=== PATIENT | female | born 1985 | race African-American/Black ===

== ENCOUNTER 2016-10-16 19:41 | Emergency (ER) | payer OTHER ==
[~2016-10-16] VITALS: Ht 162.6 cm; Wt 63.4 kg
[2016-10-16 20:43] LABS: HEMATOCRIT 36.2 % (36.0-46.0); MCH 32.3 PG (29.0-34.0); MCHC 33.1 G/DL (30.0-36.0); MCV 97.3 FL (83-99); RBC DIS.WIDTH-CV 14.7 % (11.8-14.6); RBC DIS.WIDTH-SD 52.4 % (39-53); RED BLOOD COUNT 3.72 M/uL (3.80-5.20); WHITE BLOOD COUNT 12.1 K/uL (4.1-10.2)
[2016-10-16 20:46] LABS: ADD MIUA? YES; BILIRUBIN NEGATIVE; BLOOD NEGATIVE; COLOR YELLOW ((YELLOW)); GLUCOSE (STRIP) NEGATIVE; KETONES 20; LEUKOCYTES NEGATIVE; NITRITE NEGATIVE; PROTEIN (STRIP) NEGATIVE; SPECIFIC GRAVITY 1.016 (1.000-1.030); UROBILINOGEN 0.2 MG/DL (0.2-1.0)
[2016-10-16 20:56] LABS: CHLORIDE 107 mEq/L (99-109); POTASSIUM 3.9 mEq/L (3.7-5.4); SODIUM 135 mEq/L (136-147)
[2016-10-16 20:58] LABS: BACTERIA RARE /HPF; EPITHELIAL CELLS 2+ /HPF; MUCUS TRACE /LPF; RED BLOOD CELLS 0-5 /HPF (0-5); UCUL ADDED? NO; WHITE BLOOD CELLS 0-5 /HPF (0-5)
[2016-10-16 20:59] LABS: GLUCOSE 81 mg/dL (70-99)
[2016-10-16 21:00] LABS: ANION GAP 6 MEQ/L (2-14)
[2016-10-16 21:01] LABS: TOTAL BILIRUBIN 0.3 mg/dL (0.0-1.0)
[2016-10-16 21:02] LABS: ALKALINE PHOSPHATASE 46 IU/L (3-129)
[2016-10-16 21:03] LABS: GFR ESTIMATE (CALCULATED) > 59 mL/min/
[2016-10-16 21:32] LABS: UREA NITROGEN (BUN) 8 mg/dL (9-23)
[2016-10-16 21:40] LABS: MEAN PLAT.VOLUME 11.8 uM^3 (9.5-12.4); PLAT.SUFFICIENCY ADEQUATE; PLATELET COUNT 243 K/uL (156-360)
[2016-10-16] MEDS ORDERED: ONDANSETRON HCL4 MG PO (22:27)
[2016-10-16] MEDS ORDERED: PRENATAL TABLE1 EAC3 PO (22:28)
[2016-10-16 23:00] VITALS: BP 118/71
== END 2016-10-16 23:15 | disposition home or self-care (01) ==
LOC: EME 19:41
PROVIDERS: Physician Assistant
DX: Z04.1 Encounter for examination and observation following transport accident (principal); O26.892 Other specified pregnancy related conditions, second trimester; R10.9 Unspecified abdominal pain; Z3A.19 19 weeks gestation of pregnancy; V49.50XA Passenger injured in collision with unspecified motor vehicles in traffic accident, initial encounter
CPT/HCPCS: 76805; 80053; 81003; 85027; 99281; 99284